=== PATIENT | female | born 1960 | race Caucasian/White ===

== ENCOUNTER 2019-05-22 15:54 | Observation (INO) ==
[2019-05-22] MEDS ORDERED: 0.9 % Sodium Chloride 2,000 ML ONE (16:06)
[2019-05-22] MEDS ORDERED: levoFLOXacin 750 MG/150 ML 750 MG/150 ML BAG IVPB ONE (16:07)
[2019-05-22] MEDS ORDERED: Isovue-370 500 ML BOTTLE IVP ONE ×2 (16:08→16:39)
[2019-05-22] MEDS ORDERED: Hydrocortisone Sodium Succ 100 MG/2 ML VIAL IVP ONE (16:12)
[2019-05-22] MEDS: 0.9 % Sodium Chloride 1,000 ML IVC SCH ×4 (16:14→23:54)
[2019-05-22] MEDS ORDERED: Ondansetron 4 MG/2 ML VIAL IVP ONE (16:26)
[2019-05-22 16:45] LABS: Basophils % 0.3 %; Eosinophils % 0.2 %; Hemoglobin 12.3 g/dL (11.5-15.4); Immature Granulocytes % 0.5 % (0-4); Lymphocytes # 0.6 K/mcL (0.6-4.6); Lymphocytes % 4.6 %; Mean Corpuscular HGB Conc 31.5 g/dL (31.6-35.5); Mean Corpuscular Hemoglobin 24.9 pg (28.0-33.3); Mean Corpuscular Volume 78.9 fL (83.0-100.0); Mean Platelet Volume 10.8 fL (9.4-12.4); Monocytes # 0.7 K/mcL (0.0-1.3); Monocytes % 5.9 %; Neutrophils # 10.8 K/mcL (1.6-8.9); Platelet Count 223 K/mcL (140-400); Red Blood Count 4.94 M/mcL (3.82-4.97); Segmented Neutrophils % 88.5 %; White Blood Count 12.2 K/mcL (4.3-11.1)
[2019-05-22 17:02] LABS: Prothrombin Time 11.2 Seconds (9.4-12.1)
[2019-05-22 17:04] LABS: Activated Partial Thrombo Time 24.6 Seconds (26.0-36.0)
[2019-05-22 17:09] LABS: Alanine Aminotransferase 13 Units/L (7-52); Albumin 3.5 g/dL (3.5-5.7); Albumin/Globulin Ratio 1.2 (1.1-2.2); Alkaline Phosphatase 93 Units/L (34-104); Aspartate Amino Transferase 14 Units/L (13-39); BUN/Creatinine Ratio 8 (6-26); Bilirubin,Direct 0.1 mg/dL (0.0-0.2); Bilirubin,Indirect 0.3 mg/dL (0.0-1.0); Bilirubin,Total 0.4 mg/dL (0.3-1.0); Blood Urea Nitrogen 10 mg/dL (8-23); Calcium 7.7 mg/dL (8.6-10.3); Carbon Dioxide 23 mEq/L (23-29); Chloride 98 mEq/L (98-107); Glucose 151 mg/dL (70-105); Lipase 27 Units/L (11-82); Magnesium 2.1 mg/dL (1.6-2.6); Osmolality,Calculated 282 (280-300); Phosphorous 2.4 mg/dL (2.7-4.5); Potassium 3.2 mEq/L (3.5-5.1); Sodium 135 mEq/L (136-145); Total Protein 6.5 g/dL (6.4-8.9); Troponin I < 0.03 ng/mL (< 0.04); eGFR For African Americans 52 (> 60); eGFR For Non-African Americans 43 (> 60)
[2019-05-22] MEDS ORDERED: Potassium Chloride Elixir 20 MEQ/15 ML UDC PO ONE (17:43)
[2019-05-22] MEDS ORDERED: Azithromycin 500 MG in 0.9 % Sodium Chloride 250 ML IVPB ONE (17:44)
[2019-05-22] MEDS ORDERED: VORICONAZOLE IVPB STA (19:09)
[2019-05-22] MEDS ORDERED: SODIUM CHLORIDE 0.9% IVPB STA (19:09)
[2019-05-22] MEDS ORDERED: Naloxone 0.4 MG/ML INJ IVP PRN (22:45)
[2019-05-22] MEDS ORDERED: Ondansetron 4 MG/2 ML VIAL IVP PRN (22:45)
[2019-05-22 23:26] LABS: BUN/Creatinine Ratio 9 (6-26); Blood Urea Nitrogen 9 mg/dL (8-23); Calcium 6.8 mg/dL (8.6-10.3); Carbon Dioxide 22 mEq/L (23-29); Chloride 104 mEq/L (98-107); Glucose 119 mg/dL (70-105); Osmolality,Calculated 284 (280-300); Potassium 4.1 mEq/L (3.5-5.1); Sodium 137 mEq/L (136-145); eGFR For African Americans > 60 (> 60); eGFR For Non-African Americans 53 (> 60)
[2019-05-22] MEDS: Calcium Gluconate 1gm/50mL 1 GM/50 ML BAG IVPB SCH (23:54)
[2019-05-23] MEDS ORDERED: Ondansetron ODT 4 MG TAB.RAPDIS PO PRN (00:30)
[2019-05-23] MEDS ORDERED: ALPRAZolam 0.25 MG TABLET PO PRN (00:30)
[2019-05-23] MEDS ORDERED: Ipratropium/Albuterol Neb 3 ML IH PRN (01:14)
[2019-05-23] MEDS: Calcium Gluconate 1gm/50mL 1 GM/50 ML BAG IVPB SCH (01:43)
[2019-05-23 01:51] LABS: Bilirubin,Urine Negative (Negative); Blood,Urine Negative (Negative); Clarity,Urine Clear (Clear); Color,Urine Yellow (Yellow); Glucose,Urine (UA) Normal (Normal); Ketones,Urine Negative (Negative); Leukocyte Esterase,Urine Trace (Negative); Nitrite,Urine Negative (Negative); PH,Urine 5.5 pH Units (5.0-8.0); Protein,Urine Trace mg/dL (Neg-Trace); Specific Gravity,Urine > 1.030 (1.010-1.025); Urobilinogen,Urine Normal (Normal)
[2019-05-23 01:53] LABS: Bacteria,Urine None Seen per hpf (None-Few); Hyaline Casts,Urine None Seen per lpf (None-Few); RBC,Urine 0-3 per hpf (0-3); Squamous Epithelial Cell,Urine Many per lpf (None-Few); WBC,Urine 15-30 per hpf (0-3)
[2019-05-23] MEDS ORDERED: D5% in Water 1,000 ML IVC PRN (01:57)
[2019-05-23] MEDS ORDERED: *HR* Dextrose 50 % in Water (Syg) 50 ML SYRINGE IVP PRN (01:57)
[2019-05-23] MEDS ORDERED: Dextrose Gel 15 GM/37.5 ML TUBE PO PRN ×2 (01:57)
[2019-05-23 02:07] LABS: Adenovirus Not Detected (Not Detect); Bordetella Pertussis Not Detected (Not Detect); Chlamydophila pneumoniae Not Detected (Not Detect); Coronavirus 229E Not Detected (Not Detect); Coronavirus HKU1 Not Detected (Not Detect); Coronavirus NL63 Not Detected (Not Detect); Coronavirus OC43 Not Detected (Not Detect); Human Metapneumovirus Not Detected (Not Detect); Human Rhinovirus/Enterovirus Not Detected (Not Detect); Influenza A Subtype 2009 H1 Not Detected (Not Detect); Influenza A Untypeable Not Detected (Not Detect); Influenza B Not Detected (Not Detect); Mycoplasma pneumoniae Not Detected (Not Detect); Parainfluenza Virus 1 Not Detected (Not Detect); Parainfluenza Virus 2 Not Detected (Not Detect); Parainfluenza Virus 3 Not Detected (Not Detect); Parainfluenza Virus 4 Not Detected (Not Detect); Respiratory Syncytial Virus Not Detected (Not Detect)
[2019-05-23 03:22] LABS: Blood Urea Nitrogen 10 mg/dL (8-23); Calcium 7.6 mg/dL (8.6-10.3); Carbon Dioxide 23 mEq/L (23-29); Chloride 105 mEq/L (98-107); Glucose 133 mg/dL (70-105); Osmolality,Calculated 287 (280-300); Sodium 138 mEq/L (136-145)
[2019-05-23 04:02] LABS: BUN/Creatinine Ratio 9 (6-26); eGFR For African Americans > 60 (> 60); eGFR For Non-African Americans 51 (> 60)
[2019-05-23] MEDS ORDERED: Calcium Gluconate 1gm/50mL 1 GM/50 ML BAG IVPB ONE (04:38)
[2019-05-23] MEDS: *HR* Heparin 5,000 UNIT/ML VIAL SQ SCH ×3 (05:05→22:46)
[2019-05-23 07:26] LABS: Estimated Average Glucose 151 mg/dl
[2019-05-23] MEDS ORDERED: 0.9 % Sodium Chloride 500 ML ONE ×2 (09:08→09:26)
[2019-05-23] MEDS ORDERED: Heparin 1,000 UNITS/500 mL 500 ML ONE (09:08)
[2019-05-23] MEDS ORDERED: *HR* Midazolam HCl 2 MG/2 ML VIAL IVP ONE (09:14)
[2019-05-23] MEDS ORDERED: *HR* FentaNYL (PF) 100 MCG/2 ML VIAL IVP ONE (09:14)
[2019-05-23] MEDS ORDERED: Isovue-300 50ML VIAL IVP ONE ×3 (10:10)
[2019-05-23] MEDS: predniSONE 5 MG TABLET PO SCH (10:44)
[2019-05-23] MEDS: Insulin LISPRO 300 UNITS/3 ML VIAL SQ SCH ×3 (10:44→16:28)
[2019-05-23] MEDS ORDERED: Isovue-370 500 ML BOTTLE IVP ONE (11:52)
[2019-05-23] MEDS: 0.9 % Sodium Chloride 1,000 ML IVC SCH (12:58)
[2019-05-23] MEDS ORDERED: levoFLOXacin 750 MG/150 ML 750 MG/150 ML BAG IVPB SCH (16:00)
[2019-05-23] MEDS: Pantoprazole 40 MG VIAL IVP SCH (17:19)
[2019-05-23] MEDS ORDERED: Acetaminophen 325 MG TABLET PO PRN (17:42)
[2019-05-23] MEDS ORDERED: Insulin LISPRO 300 UNITS/3 ML VIAL SQ SCH (21:00)
[2019-05-24] MEDS ORDERED: NIFEdipine 10 MG CAPSULE PO ONE (02:43)
[2019-05-24 05:07] LABS: Basophils % 0.2 %; Eosinophils % 0.7 %; Hematocrit 32.2 % (35.3-44.9); Immature Granulocytes % 0.2 % (0-4); Lymphocytes # 0.9 K/mcL (0.6-4.6); Mean Corpuscular HGB Conc 30.1 g/dL (31.6-35.5); Mean Corpuscular Hemoglobin 24.6 pg (28.0-33.3); Mean Corpuscular Volume 81.7 fL (83.0-100.0); Mean Platelet Volume 11.1 fL (9.4-12.4); Monocytes # 0.5 K/mcL (0.0-1.3); Monocytes % 8.9 %; Neutrophils # 4.1 K/mcL (1.6-8.9); Platelet Count 147 K/mcL (140-400); Red Blood Count 3.94 M/mcL (3.82-4.97); Red Cell Distribution Width 17.7 % (11.5-14.5)
[2019-05-24 05:09] LABS: Hemoglobin 9.7 g/dL (11.5-15.4); White Blood Count 5.5 K/mcL (4.3-11.1)
[2019-05-24 05:25] LABS: BUN/Creatinine Ratio 9 (6-26); Blood Urea Nitrogen 7 mg/dL (8-23); Calcium 7.7 mg/dL (8.6-10.3); Carbon Dioxide 28 mEq/L (23-29); Chloride 102 mEq/L (98-107); Glucose 126 mg/dL (70-105); Osmolality,Calculated 286 (280-300); Potassium 3.8 mEq/L (3.5-5.1); Sodium 138 mEq/L (136-145); eGFR For African Americans > 60 (> 60); eGFR For Non-African Americans > 60 (> 60)
[2019-05-24] MEDS: Pantoprazole 40 MG VIAL IVP SCH (06:07)
[2019-05-24] MEDS: *HR* Heparin 5,000 UNIT/ML VIAL SQ SCH (06:07)
[2019-05-24] MEDS ORDERED: *HR* FentaNYL (PF) 100 MCG/2 ML VIAL ONE (07:18)
[2019-05-24] MEDS ORDERED: *HR* Midazolam HCl 2 MG/2 ML VIAL ONE (07:19)
[2019-05-24] MEDS ORDERED: *HR* Propofol 200 MG/20 ML VIAL IVP ONE ×2 (07:19→08:35)
[2019-05-24] MEDS ORDERED: Ondansetron 4 MG/2 ML VIAL ONE (07:24)
[2019-05-24] MEDS ORDERED: *HR* Succinylcholine 200 MG/10 ML VIAL IVP ONE (07:24)
[2019-05-24] MEDS ORDERED: Dexamethasone 4 MG/ML VIAL ONE (07:24)
[2019-05-24] MEDS ORDERED: Lidocaine -MPF 4% 5 ML AMPUL ONE (07:25)
[2019-05-24] MEDS: Insulin LISPRO 300 UNITS/3 ML VIAL SQ SCH ×2 (07:54→11:21)
[2019-05-24] MEDS ORDERED: Ringers Solution, Lactated 1,000 ML IVC SCH (08:15)
[2019-05-24] MEDS ORDERED: *HR* Labetalol 20 MG/4 ML SYRINGE IVP ONE ×2 (08:46→08:47)
[2019-05-24] MEDS ORDERED: Ipratropium/Albuterol Neb 3 ML IH ONE (09:13)
[2019-05-24] MEDS ORDERED: Ipratropium/Albuterol Neb 3 ML ONE (09:19)
[2019-05-24 11:07] VITALS: BP 127/72
[2019-05-24 11:21] LABS: Appearance of Body Fluid Clear (Clear); Volume of Body Fluid 18 mL
[2019-05-24 12:12] LABS: Appearance of Body Fluid Clear (Clear); Volume of Body Fluid 12 mL
[2019-05-24] MEDS: predniSONE 5 MG TABLET PO SCH (14:35)
[2019-05-24 16:19] LABS: A.galactomannan Ag Index 0.03
[2019-05-26 20:03] LABS: HSV Source BAL
[2019-05-27 12:25] LABS: HSV Source NOT PROVIDED
== END 2019-05-24 16:40 | disposition home or self-care (01) ==
LOC: EMEROOARM 15:54 → 2NENU 15:54 → SUATTDRO 21:23 → 2NENU 21:50
PROVIDERS: ADMIT Internal Medicine; ATTEND Internal Medicine

== ENCOUNTER 2019-07-23 13:17 | Observation (INO) ==
[2019-07-23] MEDS ORDERED: Ondansetron 4 MG/2 ML VIAL IVP ONE (13:34)
[2019-07-23] MEDS ORDERED: Pantoprazole 40 MG VIAL IVP ONE (13:34)
[2019-07-23] MEDS ORDERED: 0.9 % Sodium Chloride 1,000 ML IVC ONE (13:34)
[2019-07-23] MEDS ORDERED: Morphine Sulfate 2 MG/ML SYRINGE IVP ONE (14:08)
[2019-07-23 14:18] LABS: Eosinophils % 3.4 %; Hematocrit 35.9 % (35.3-44.9); Hemoglobin 11.1 g/dL (11.5-15.4); Immature Granulocytes % 1.7 % (0-4); Immature Platelets 3.7 % (1.1-6.1); Lymphocytes % 13.2 %; Mean Corpuscular HGB Conc 30.9 g/dL (31.6-35.5); Mean Corpuscular Hemoglobin 25.8 pg (28.0-33.3); Mean Corpuscular Volume 83.3 fL (83.0-100.0); Mean Platelet Volume 10.9 fL (9.4-12.4); Monocytes % 13.2 %; Platelet Count 206 K/mcL (140-400); Red Blood Count 4.31 M/mcL (3.82-4.97); Red Cell Distribution Width 16.6 % (11.5-14.5); Segmented Neutrophils % 67.9 %; White Blood Count 5.4 K/mcL (4.3-11.1)
[2019-07-23 14:19] LABS: Basophils % 0.6 %; Eosinophils # 0.2 K/mcL (0.0-0.6); Lymphocytes # 0.7 K/mcL (0.6-4.6); Monocytes # 0.7 K/mcL (0.0-1.3); Neutrophils # 3.7 K/mcL (1.6-8.9)
[2019-07-23 14:35] LABS: Albumin 3.4 g/dL (3.5-5.7); Albumin/Globulin Ratio 1.2 (1.1-2.2); Bilirubin,Direct 0.1 mg/dL (0.0-0.2); Bilirubin,Indirect 0.3 mg/dL (0.0-1.0); Bilirubin,Total 0.4 mg/dL (0.3-1.0); Calcium 7.9 mg/dL (8.6-10.3); Globulin 2.9 g/dL (2.4-3.5); Potassium 2.9 mEq/L (3.5-5.1); Total Protein 6.3 g/dL (6.4-8.9)
[2019-07-23] MEDS ORDERED: Potassium Chloride 40 MEQ, Lidocaine 1% 2 ML in 0.9 % Sodium Chloride 500 ML IVPB ONE (15:02)
[2019-07-23] MEDS ORDERED: Naloxone 0.4 MG/ML INJ IVP PRN (16:10)
[2019-07-23] MEDS ORDERED: 0.9 % Sodium Chloride 1,000 ML IVC SCH (16:15)
[2019-07-23 16:41] LABS: Magnesium 1.8 mg/dL (1.6-2.6)
[2019-07-23] MEDS ORDERED: Acetaminophen 325 MG TABLET PO PRN (16:45)
[2019-07-23] MEDS: *HR* Heparin 5,000 UNIT/ML VIAL SQ SCH (18:25)
[2019-07-23] MEDS ORDERED: Acetaminophen IV 500 MG/50 ML INFUS..BTL IVPB ONE (18:47)
[2019-07-23] MEDS ORDERED: Ondansetron 4 MG/2 ML VIAL IVP PRN (18:48)
[2019-07-24 03:00] LABS: Basophils % 0.3 %; Eosinophils # 0.2 K/mcL (0.0-0.6); Eosinophils % 5.1 %; Hematocrit 31.6 % (35.3-44.9); Hemoglobin 9.9 g/dL (11.5-15.4); Immature Granulocytes % 1.3 % (0-4); Lymphocytes # 0.6 K/mcL (0.6-4.6); Lymphocytes % 19.4 %; Mean Corpuscular HGB Conc 31.3 g/dL (31.6-35.5); Mean Corpuscular Hemoglobin 25.9 pg (28.0-33.3); Mean Corpuscular Volume 82.7 fL (83.0-100.0); Mean Platelet Volume 11.4 fL (9.4-12.4); Monocytes # 0.4 K/mcL (0.0-1.3); Neutrophils # 1.9 K/mcL (1.6-8.9); Platelet Count 182 K/mcL (140-400); Red Blood Count 3.82 M/mcL (3.82-4.97); Red Cell Distribution Width 16.7 % (11.5-14.5); Segmented Neutrophils % 59.9 %; White Blood Count 3.2 K/mcL (4.3-11.1)
[2019-07-24] MEDS ORDERED: Acetaminophen IV 1,000 MG/100 ML INFUS..BTL IVPB ONE (03:19)
[2019-07-24 03:21] LABS: Alanine Aminotransferase 12 Units/L (7-52); Albumin 2.9 g/dL (3.5-5.7); Albumin/Globulin Ratio 1.3 (1.1-2.2); Alkaline Phosphatase 83 Units/L (34-104); Aspartate Amino Transferase 45 Units/L (13-39); BUN/Creatinine Ratio 7 (6-26); Bilirubin,Total 0.5 mg/dL (0.3-1.0); Blood Urea Nitrogen 7 mg/dL (8-23); Calcium 7.1 mg/dL (8.6-10.3); Carbon Dioxide 28 mEq/L (23-29); Chloride 101 mEq/L (98-107); Globulin 2.3 g/dL (2.4-3.5); Glucose 95 mg/dL (70-105); Magnesium 1.9 mg/dL (1.6-2.6); Osmolality,Calculated 278 (280-300); Potassium 2.9 mEq/L (3.5-5.1); Sodium 135 mEq/L (136-145); Total Protein 5.2 g/dL (6.4-8.9); eGFR For African Americans > 60 (> 60); eGFR For Non-African Americans 55 (> 60)
[2019-07-24] MEDS: *HR* Heparin 5,000 UNIT/ML VIAL SQ SCH ×3 (03:22→22:59)
[2019-07-24] MEDS: Potassium Chloride Elixir 20 MEQ/15 ML UDC PO SCH ×2 (05:42→09:34)
[2019-07-24] MEDS: Calcium Gluconate 1gm/50mL 1 GM/50 ML BAG IVPB SCH ×2 (05:52→06:57)
[2019-07-24 22:42] LABS: Adenovirus F 40/41 PCR Not detected (Not detect); Astrovirus PCR Not detected (Not detect); C.difficile Toxin A/B Gene PCR Not detected (Not detect); Campylobacter by PCR Not detected (Not detect); Cryptosporidium by PCR Not detected (Not detect); Cyclospora cayetanensis PCR Not detected (Not detect); E. coli O157 by PCR Not detected (Not detect); Entamoeba histolytica PCR Not detected (Not detect); Enteroaggregative E.coli(EAEC) Not detected (Not detect); Enteropathogenic E.coli(EPEC) Not detected (Not detect); Enterotoxigenic E.coli (ETEC) Not detected (Not detect); Giardia lamblia PCR Not detected (Not detect); Norovirus GI/GII PCR Not detected (Not detect); Plesiomonas shigelloides PCR Not detected (Not detect); Rotavirus A PCR Not detected (Not detect); Salmonella PCR Not detected (Not detect); Sapovirus PCR Not detected (Not detect); Shig/EnteroinvasiveE coli EIEC Not detected (Not detect); Shigalike tox-prod E coli STEC Not detected (Not detect); Vibrio PCR Not detected (Not detect); Vibrio cholerae PCR Not detected (Not detect); Yersinia enterocolitica PCR Not detected (Not detect)
[2019-07-25 05:26] LABS: Basophils % 0.6 %; Eosinophils # 0.2 K/mcL (0.0-0.6); Eosinophils % 6.6 %; Hematocrit 32.7 % (35.3-44.9); Hemoglobin 10.4 g/dL (11.5-15.4); Immature Granulocytes % 0.9 % (0-4); Lymphocytes # 0.7 K/mcL (0.6-4.6); Lymphocytes % 20.2 %; Mean Corpuscular HGB Conc 31.8 g/dL (31.6-35.5); Mean Corpuscular Hemoglobin 26.1 pg (28.0-33.3); Mean Platelet Volume 11.5 fL (9.4-12.4); Monocytes # 0.6 K/mcL (0.0-1.3); Monocytes % 16.5 %; Neutrophils # 1.9 K/mcL (1.6-8.9); Platelet Count 197 K/mcL (140-400); Red Blood Count 3.99 M/mcL (3.82-4.97); Red Cell Distribution Width 17.2 % (11.5-14.5); Segmented Neutrophils % 55.2 %; White Blood Count 3.5 K/mcL (4.3-11.1)
[2019-07-25 05:41] LABS: Alanine Aminotransferase 10 Units/L (7-52); Albumin 2.9 g/dL (3.5-5.7); Albumin/Globulin Ratio 1.2 (1.1-2.2); Alkaline Phosphatase 93 Units/L (34-104); Aspartate Amino Transferase 24 Units/L (13-39); BUN/Creatinine Ratio 4 (6-26); Bilirubin,Total 0.3 mg/dL (0.3-1.0); Blood Urea Nitrogen 4 mg/dL (8-23); Calcium 7.8 mg/dL (8.6-10.3); Carbon Dioxide 26 mEq/L (23-29); Chloride 107 mEq/L (98-107); Globulin 2.5 g/dL (2.4-3.5); Glucose 86 mg/dL (70-105); Magnesium 1.9 mg/dL (1.6-2.6); Osmolality,Calculated 284 (280-300); Potassium 3.7 mEq/L (3.5-5.1); Sodium 139 mEq/L (136-145); Total Protein 5.4 g/dL (6.4-8.9); eGFR For African Americans > 60 (> 60); eGFR For Non-African Americans 59 (> 60)
[2019-07-25] MEDS ORDERED: Cyanocobalamin (B-12) 1,000 MCG TABLET PO SCH (09:00)
[2019-07-25] MEDS ORDERED: predniSONE 5 MG TABLET PO SCH (09:00)
[2019-07-25 11:47] VITALS: BP 148/88
== END 2019-07-25 18:31 | disposition home health service (06) ==
LOC: 3BNU 13:17 → EMEROOARM 13:17 → 3BNU 16:32
PROVIDERS: ADMIT Student in an Organized Health Care Education/Training Program; ATTEND Student in an Organized Health Care Education/Training Program